=== PATIENT | male | born 1975 | race Caucasian/White ===

== ENCOUNTER 2023-06-18 14:12 | Emergency (ER) | payer BC, MEDICAID ==
[~2023-06-18] VITALS: Ht 190.5 cm; Wt 136.6 kg
[2023-06-18] MEDS ORDERED: diphenhydrAMINE 50 mg/ml inj IM ONE (16:35)
[2023-06-18] MEDS ORDERED: methylPREDNISolone sod succ 125mg/2ml vial IM ONE (16:35)
[2023-06-18 16:55] VITALS: BP 142/86; PULSE 102; RESP 18; TEMP 99.2; O2SAT 100
--- NOTE | 2023-06-18 17:01 | NUR ---
I have reviewed and agree with all interventions, assessments performed and documented by Sherice STAPLETON LVN.
== END 2023-06-18 16:57 | disposition home or self-care (01) ==
LOC: ER 14:13
DX: L50.9 Urticaria, unspecified (principal); Z79.899 Other long term (current) drug therapy
CPT/HCPCS: 96372; 99284; J1200; J2930